=== PATIENT | female | born 1975 | race Caucasian/White ===

== ENCOUNTER 2018-12-16 10:52 | Emergency (ER) | payer MEDICARE ==
[~2018-12-16] VITALS: Ht 172.7 cm; Wt 90.0 kg
[2018-12-16] MEDS ORDERED: BAYER ASPIRIN E81 MG PO (11:53)
[2018-12-16] MEDS ORDERED: ALDACTONE25 MG PO (11:54)
[2018-12-16] MEDS ORDERED: LORATADINE10 M4 PO (11:54)
[2018-12-16] MEDS ORDERED: NEURONTIN300 MG PO (11:54)
[2018-12-16] MEDS ORDERED: BACLOFEN10 MG PO (11:55)
[2018-12-16] MEDS ORDERED: LOPRESSOR 550 MG/TAB PO (11:55)
[2018-12-16] MEDS ORDERED: VALSARTAN80 MG PO (11:56)
[2018-12-16] MEDS ORDERED: PRAVASTATIN SOD20 MG PO (11:56)
[2018-12-16] MEDS ORDERED: NOVOLOG FL100 UNIT/M SC (12:03)
[2018-12-16] MEDS ORDERED: TRESIBA FL100 UNIT/M SC (12:03)
[2018-12-16 12:15] VITALS: BP 144/87
== END 2018-12-16 12:15 | disposition home or self-care (01) ==
LOC: ED 10:52
PROC: 2W3DX1Z Immobilization of Left Lower Arm using Splint (ICD-10-PCS; principal; 2018-12-16)
DX: S52.502A Unspecified fracture of the lower end of left radius, initial encounter for closed fracture (principal); S52.612A Displaced fracture of left ulna styloid process, initial encounter for closed fracture; E11.9 Type 2 diabetes mellitus without complications; I10 Essential (primary) hypertension; W01.0XXA Fall on same level from slipping, tripping and stumbling without subsequent striking against object, initial encounter; Y92.009 Unspecified place in unspecified non-institutional (private) residence as the place of occurrence of the external cause